=== PATIENT | male | born 1970 | race Caucasian/White ===

== ENCOUNTER 2016-07-30 00:39 | Emergency (ER) | payer BC ==
[2005-08-31 18:02] VITALS: BP 134/68
[~2016-07-30] VITALS: Ht 177.8 cm; Wt 122.3 kg
[~2016-07-30 00:39] MED LIST: ASPIRIN 32325 MG/TAB PO; CRESTOR 10MG10 MG PO; DEXILANT60 MG PO; FOLIC ACID 11 MG/TA1 PO; FORT1000TA PO; JANUVIA 100MG100 MG PO; METHOTREXA2.5 MG/TAB PO; PRIL40 PO; VICTOZA6 MG/ML SC
[2016-07-30] MEDS ORDERED: LIPITOR20 MG PO (00:55)
[2016-07-30] MEDS ORDERED: EMBREL (00:56)
[2016-07-30] MEDS ORDERED: FARXIGA10 PO (01:00)
[2016-07-30 01:12] LABS: ADJUSTED CALCIUM 11.1 mg/dL (8.4-10.2); ALANINE AMINOTRANSFERASE 39 U/L (21-72); ALBUMIN 4.7 gm/dL (3.5-5.0); ALKALINE PHOSPHATASE 135 U/L (50-136); ANION GAP 12 mmol/L (7-16); BILIRUBIN,TOTAL 0.9 mg/dL (0.0-1.0); BLOOD UREA NITROGEN 18 mg/dL (9-20); CALCIUM 11.7 mg/dL (8.4-10.2); CARBON DIOXIDE 30 mmol/L (22-30); CHLORIDE 100 mmol/L (98-107); CREATININE, serum 0.95 mg/dL (0.66-1.25); GLUCOSE 137 mg/dL (74-106); SODIUM 142 mmol/L (137-145); TOTAL PROTEIN 8.7 gm/dL (6.4-8.2); TROPONIN-I < 0.012 ng/mL (0.000-0.034)
[2016-07-30 01:13] LABS: BASO # 0.1 (0.0-0.2); BASO % 0.6 % (0.0-2.0); EOS # 0.3 (0.0-0.7); EOS % 2.5 % (0-4.0); GRAN # 6.7 (1.4-6.5); GRAN % 64.3 % (42.2-75.2); HEMATOCRIT 49.7 % (42.0-52.0); HEMOGLOBIN 16.3 g/dl (13.5-18.0); LYMPH % 19.3 % (20.0-51.0); MEAN CELL VOLUME 84 fl (80.0-100.0); MEAN CORPUSCULAR HEMOGLOBIN 28 pg (27.0-31.0); MEAN CORPUSCULAR HGB CONC 33 g/dl (33.0-37.0); MEAN PLATELET VOLUME 10.3 fl (7.4-10.4); MONO # 1.3 (0.1-0.6); MONO % 12.2 % (1.7-9.3); PLATELET COUNT 228 K/mm3 (130-400); REDCELL DISTRIBUTION WIDTH-CV 13.4 % (11.5-14.5); WHITE BLOOD COUNT 10.5 K/mm3 (4.8-10.8)
[2016-07-30 01:18] LABS: INR 1.1 (0.8-3.0); PROTHROMBIN TIME 12.1 SECONDS (9.7-12.8)
[2016-07-30 01:20] LABS: PARTIAL THROMBOPLASTIN TIME 33.7 SECONDS (26.0-37.0)
[2016-07-30 01:28] LABS: C-REACTIVE PROTEIN 3.8 mg/dL (0.0-0.9)
[2016-07-30] MEDS ORDERED: ZITHROMAX Z PA250 MG PO (02:58)
[2016-07-30] MEDS ORDERED: NORCO 325 MG-51 TAB PO (02:58)
[2016-07-30 03:25] VITALS: BP 128/74; PULSE 73; TEMP 97.8
[2016-07-30] MEDS ORDERED: ENBREL50 MG/ML SC (13:10)
[2016-08-22] MEDS ORDERED: VITAMIN D32000 I1 PO (07:59)
[2016-08-22] MEDS ORDERED: NORCO 325 MG-7.1 TAB PO (08:01)
[2016-08-22] MEDS ORDERED: NEURONTIN400 MG/CAP PO (08:01)
[2017-03-14] MEDS ORDERED: CLEOCIN HCL300 MG PO (15:13)
== END 2016-07-30 03:27 | disposition home or self-care (01) ==
LOC: COL.ER 00:39
PROVIDERS: Family Medicine
DX: R07.89 Other chest pain (principal); R91.8 Other nonspecific abnormal finding of lung field; R00.0 Tachycardia, unspecified; E11.9 Type 2 diabetes mellitus without complications; Z79.84 Long term (current) use of oral hypoglycemic drugs
CPT/HCPCS: J0696; Q9967

== ENCOUNTER 2016-08-01 08:17 | Outpatient (CLI) | payer BC ==
[2005-08-31 18:02] VITALS: BP 134/68
[2016-08-01] VITALS (12 sets, daily range): BP systolic 131–161; BP diastolic 71–111; PULSE 85–103
[~2016-08-01] VITALS: Ht 177.8 cm; Wt 122.3 kg
[~2016-08-01 08:17] MED LIST changes: +EMBREL; +ENBREL50 MG/ML SC; +FARXIGA10 PO; +LIPITOR20 MG PO; +NORCO 325 MG-51 TAB PO; +ZITHROMAX Z PA250 MG PO
[2016-08-01] MEDS ORDERED: ULTRAM 50MG TAB50 MG PO (09:45)
[2016-08-22] MEDS ORDERED: VITAMIN D32000 I1 PO (07:59)
[2016-08-22] MEDS ORDERED: NORCO 325 MG-7.1 TAB PO (08:01)
[2016-08-22] MEDS ORDERED: NEURONTIN400 MG/CAP PO (08:01)
[2017-03-14] MEDS ORDERED: CLEOCIN HCL300 MG PO (15:13)
== END 2016-08-01 14:05 | disposition home or self-care (01) ==
LOC: COL.RAD 08:17
DX: C34.12 Malignant neoplasm of upper lobe, left bronchus or lung (principal)
CPT/HCPCS: 3748

== ENCOUNTER → 2016-08-15 | Outpatient (CLI) | payer BC ==
[~2016-08-15] MED LIST changes: +ATIVAN 0.50.5 MG/TAB PO; +CLEOCIN HCL300 MG PO; +GLUCOPHAGE1000 MG PO; +GRALISE300 MG PO; +MAGIC MOUTH PO; +MS CONTIN 115 MG/TAB PO; +NEURONTIN400 MG/CAP PO; +NORCO 325 MG-7.1 TAB PO; +PHENERGAN 25 TA25 MG PO; +REGLAN 10MG10 MG/TAB PO; +ULTRAM 50MG TAB50 MG PO; +VITAMIN D32000 I1 PO; +VOTRIENT200 MG PO; +ZOFRAN8 MG PO
== END ==
LOC: COL.RAD 12:35
DX: N28.89 Other specified disorders of kidney and ureter (principal); K80.20 Calculus of gallbladder without cholecystitis without obstruction
CPT/HCPCS: Q9967

== ENCOUNTER 2016-10-03 06:51 | Outpatient (CLI) | payer BC ==
[2005-08-31 18:02] VITALS: BP 134/68
[~2016-10-03] VITALS: Ht 177.8 cm; Wt 110.3 kg
[2016-10-03] VITALS (16 sets, daily range): BP systolic 112–127; BP diastolic 60–83; PULSE 103–113
[~2016-10-03 06:51] MED LIST changes: -ATIVAN 0.50.5 MG/TAB PO; -CLEOCIN HCL300 MG PO; -GLUCOPHAGE1000 MG PO; -GRALISE300 MG PO; -MAGIC MOUTH PO; -MS CONTIN 115 MG/TAB PO; -PHENERGAN 25 TA25 MG PO; -REGLAN 10MG10 MG/TAB PO; -VOTRIENT200 MG PO; -ZOFRAN8 MG PO
[2016-10-03] MEDS ORDERED: GRALISE300 MG PO (07:03)
[2016-10-03] MEDS ORDERED: NORCO 325 MG-7.1 TAB PO (07:05)
[2016-10-03] MEDS ORDERED: ULTRAM 50MG TAB50 MG PO (07:05)
[2017-03-14] MEDS ORDERED: CLEOCIN HCL300 MG PO (15:13)
== END 2016-10-03 12:51 | disposition home or self-care (01) ==
LOC: COL.RAD 06:51
DX: D14.31 Benign neoplasm of right bronchus and lung (principal); J95.811 Postprocedural pneumothorax; Y83.8 Other surgical procedures as the cause of abnormal reaction of the patient, or of later complication, without mention of misadventure at the time of the procedure; C34.12 Malignant neoplasm of upper lobe, left bronchus or lung; C64.2 Malignant neoplasm of left kidney, except renal pelvis; I10 Essential (primary) hypertension
CPT/HCPCS: J2250; J3010

== ENCOUNTER 2016-11-01 23:05 | Emergency (ER) | payer BC ==
[2005-08-31 18:02] VITALS: BP 134/68
[~2016-11-01] VITALS: Ht 177.8 cm; Wt 108.2 kg
[~2016-11-01 23:05] MED LIST changes: +GRALISE300 MG PO
[2016-11-01 23:08] VITALS: TEMP 98.9
[2016-11-01 23:38] LABS: HEMATOCRIT 37.5 % (42.0-52.0); HEMOGLOBIN 12.2 g/dl (13.5-18.0); MEAN CELL VOLUME 82 fl (80.0-100.0); MEAN CORPUSCULAR HEMOGLOBIN 27 pg (27.0-31.0); MEAN CORPUSCULAR HGB CONC 33 g/dl (33.0-37.0); MEAN PLATELET VOLUME 9.9 fl (7.4-10.4); PLATELET COUNT 166 K/mm3 (130-400); REDCELL DISTRIBUTION WIDTH-CV 15.3 % (11.5-14.5); WHITE BLOOD COUNT 8.9 K/mm3 (4.8-10.8)
[2016-11-01 23:46] LABS: ADD PATHOLOGY DIFF REVIEW NO
[2016-11-01 23:48] LABS: ADJUSTED CALCIUM 10.4 mg/dL (8.4-10.2); ALANINE AMINOTRANSFERASE 12 U/L (21-72); ALBUMIN 4.4 gm/dL (3.5-5.0); ALKALINE PHOSPHATASE 186 U/L (50-136); ANION GAP 16 mmol/L (7-16); BILIRUBIN,TOTAL 0.6 mg/dL (0.0-1.0); BLOOD UREA NITROGEN 20 mg/dL (9-20); CALCIUM 10.7 mg/dL (8.4-10.2); CARBON DIOXIDE 22 mmol/L (22-30); CHLORIDE 96 mmol/L (98-107); CREATININE, serum 1.16 mg/dL (0.66-1.25); SODIUM 134 mmol/L (137-145); TOTAL PROTEIN 7.7 gm/dL (6.4-8.2)
[2016-11-01 23:49] LABS: VENOUS BLOOD GAS BE -0.6 (-4-4)
[2016-11-01 23:49] LABS: BAND 2 % (0-10); GLUCOSE 564 mg/dL (74-106); METAMYELOCYTE 1 % (0-0); NEUTROPHILS 95 % (42.0-75.2); PLATELET ESTIMATE NORMAL (NORMAL); TOTAL CELLS COUNTED 100
[2016-11-01 23:50] LABS: VENOUS BLOOD GAS SITE VENIPUNCTURE
[2016-11-01] MEDS ORDERED: GLUCOPHAGE1000 MG PO (23:51)
[2016-11-01] MEDS ORDERED: ATIVAN 0.50.5 MG/TAB PO (23:52)
[2016-11-02] LABS: PH 6 (5-8); SQUAMOUS EPITHELIAL None Seen /hpf; URINE APPEARANCE Clear; URINE BACTERIA None Seen /hpf; URINE BILIRUBIN Negative (NEGATIVE); URINE BLOOD 1+ (NEGATIVE); URINE COLOR Straw; URINE GLUCOSE 3+ (NEGATIVE); URINE KETONE Negative (NEGATIVE); URINE RBC None Seen /hpf; URINE UROBILINOGEN Negative (NEGATIVE); URINE WBC 0-2 /hpf
[2016-11-02 04:20] VITALS: BP 130/75; PULSE 98
[2017-03-14] MEDS ORDERED: CLEOCIN HCL300 MG PO (15:13)
== END 2016-11-02 03:15 | disposition home or self-care (01) ==
LOC: COL.ER 23:05
PROVIDERS: Emergency Medicine
DX: E11.65 Type 2 diabetes mellitus with hyperglycemia (principal); R07.89 Other chest pain; R05 Cough; T36.1X5A Adverse effect of cephalosporins and other beta-lactam antibiotics, initial encounter; Y92.538 Other ambulatory health services establishments as the place of occurrence of the external cause; Z53.21 Procedure and treatment not carried out due to patient leaving prior to being seen by health care provider; C34.12 Malignant neoplasm of upper lobe, left bronchus or lung; Z85.528 Personal history of other malignant neoplasm of kidney; Z90.5 Acquired absence of kidney; Z92.3 Personal history of irradiation; R00.0 Tachycardia, unspecified; Z79.84 Long term (current) use of oral hypoglycemic drugs; Z79.899 Other long term (current) drug therapy
CPT/HCPCS: 99222; J0171; J0692; J1200; J1815; J7030

== ENCOUNTER 2016-12-18 07:42 | Observation (INO) | payer BC ==
[2016-12-18] VITALS (10 sets, daily range): BP systolic 110–138; BP diastolic 55–89; PULSE 81–114; TEMP 97.7–98.2
[~2016-12-18] VITALS: Ht 177.8 cm; Wt 98.5 kg
[~2016-12-18 07:42] MED LIST changes: +ATIVAN 0.50.5 MG/TAB PO; +GLUCOPHAGE1000 MG PO
[2016-12-18 08:54] LABS: MEAN CELL VOLUME 86 fl (80.0-100.0); MEAN CORPUSCULAR HGB CONC 34 g/dl (33.0-37.0); MEAN PLATELET VOLUME 9.8 fl (7.4-10.4); PLATELET COUNT 124 K/mm3 (130-400); REDCELL DISTRIBUTION WIDTH-CV 19.1 % (11.5-14.5); WHITE BLOOD COUNT 5.1 K/mm3 (4.8-10.8)
[2016-12-18 09:00] LABS: ADD PATHOLOGY DIFF REVIEW NO; HEMATOCRIT 25.8 % (42.0-52.0); HEMOGLOBIN 8.8 g/dl (13.5-18.0); MEAN CORPUSCULAR HEMOGLOBIN 29 pg (27.0-31.0)
[2016-12-18 09:02] LABS: ADJUSTED CALCIUM 10.3 mg/dL (8.4-10.2); ALBUMIN 3.9 gm/dL (3.5-5.0); C-REACTIVE PROTEIN 6.2 mg/dL (0.0-0.9); CALCIUM 10.2 mg/dL (8.4-10.2); CREATININE, serum 0.83 mg/dL (0.66-1.25); POTASSIUM 3.8 mmol/L (3.4-5.0)
[2016-12-18 09:23] LABS: BAND 3 % (0-10); EOSINOPHIL 3 % (0-4); NEUTROPHILS 78 % (42.0-75.2); TOTAL CELLS COUNTED 100
[2016-12-18 09:25] LABS: ANISOCYTOSIS 2+; HYPOCHROMIA 1+; MICROCYTOSIS 1+; PLATELET ESTIMATE NORMAL (NORMAL)
[2016-12-18 09:43] LABS: PH 8 (5-8); SQUAMOUS EPITHELIAL None Seen /hpf; URINE APPEARANCE Clear; URINE BACTERIA None Seen /hpf; URINE BILIRUBIN Negative (NEGATIVE); URINE BLOOD Negative (NEGATIVE); URINE COLOR Yellow; URINE GLUCOSE Negative (NEGATIVE); URINE KETONE Trace (NEGATIVE); URINE RBC 0-2 /hpf; URINE UROBILINOGEN Negative (NEGATIVE); URINE WBC 0-2 /hpf
[2016-12-18] MEDS ORDERED: GLUCOPHAGE1000 MG PO (12:51)
[2016-12-18] MEDS ORDERED: MAGIC MOUTH PO (12:56)
[2016-12-19 01:24] VITALS: BP 118/61; PULSE 81; TEMP 98.1
[2016-12-19 05:46] VITALS: BP 137/84; PULSE 97; TEMP 97.4
[2017-03-14] MEDS ORDERED: CLEOCIN HCL300 MG PO (15:13)
== END 2016-12-19 09:51 | disposition home or self-care (01) ==
LOC: COL.ER 07:42 → SURG 10:56
PROVIDERS: Emergency Medicine
DX: K80.10 Calculus of gallbladder with chronic cholecystitis without obstruction (principal); E11.9 Type 2 diabetes mellitus without complications; C34.91 Malignant neoplasm of unspecified part of right bronchus or lung; C64.2 Malignant neoplasm of left kidney, except renal pelvis; I10 Essential (primary) hypertension; D49.7 Neoplasm of unspecified behavior of endocrine glands and other parts of nervous system; D64.9 Anemia, unspecified; K21.9 Gastro-esophageal reflux disease without esophagitis; M19.90 Unspecified osteoarthritis, unspecified site; R20.9 Unspecified disturbances of skin sensation; Z92.21 Personal history of antineoplastic chemotherapy; Z92.3 Personal history of irradiation; Z90.5 Acquired absence of kidney
CPT/HCPCS: J1100; J1170; J2270; J2405; J2704; J2765; J3010; J7030; J7120; Q9967

== ENCOUNTER 2016-12-31 06:23 | Outpatient (CLI) | payer BC ==
[2005-08-31 18:02] VITALS: BP 134/68
[~2016-12-31] VITALS: Ht 177.8 cm; Wt 99.2 kg
[2016-12-31] VITALS (12 sets, daily range): BP systolic 98–121; BP diastolic 43–81; PULSE 98–112; TEMP 99–99.9
[~2016-12-31 06:23] MED LIST changes: +MAGIC MOUTH PO
[2017-03-14] MEDS ORDERED: CLEOCIN HCL300 MG PO (15:13)
== END 2016-12-31 11:18 | disposition home or self-care (01) ==
LOC: COL.RAD 06:23
DX: C78.01 Secondary malignant neoplasm of right lung (principal)

== ENCOUNTER 2017-01-02 15:08 | Emergency (ER) | payer BC ==
[2005-08-31 18:02] VITALS: BP 134/68
[~2017-01-02] VITALS: Ht 177.8 cm; Wt 99.5 kg
[2017-01-02 15:10] VITALS: TEMP 99
[2017-01-02] MEDS ORDERED: MS CONTIN 115 MG/TAB PO (15:35)
[2017-01-02 17:12] VITALS: BP 110/68; PULSE 99
[2017-03-14] MEDS ORDERED: CLEOCIN HCL300 MG PO (15:13)
== END 2017-01-02 17:25 | disposition home or self-care (01) ==
LOC: COL.ER 15:08
DX: J95.811 Postprocedural pneumothorax (principal); I10 Essential (primary) hypertension; C34.12 Malignant neoplasm of upper lobe, left bronchus or lung; C78.01 Secondary malignant neoplasm of right lung; C79.71 Secondary malignant neoplasm of right adrenal gland; Z85.528 Personal history of other malignant neoplasm of kidney; Z92.3 Personal history of irradiation; Z90.5 Acquired absence of kidney

== ENCOUNTER → 2017-01-04 | Outpatient (CLI) | payer BC ==
[~2017-01-04] MED LIST changes: +CLEOCIN HCL300 MG PO; +MS CONTIN 115 MG/TAB PO; +PHENERGAN 25 TA25 MG PO; +REGLAN 10MG10 MG/TAB PO; +VOTRIENT200 MG PO; +ZOFRAN8 MG PO
== END ==
LOC: COL.RAD 11:27
DX: R91.8 Other nonspecific abnormal finding of lung field (principal); Z97.8 Presence of other specified devices

== ENCOUNTER → 2017-01-05 | Outpatient (CLI) | payer BC | LOC: COL.RAD 10:48 | DX: R91.8 Other nonspecific abnormal finding of lung field (principal); J95.811 Postprocedural pneumothorax; Z95.828 Presence of other vascular implants and grafts ==

== ENCOUNTER 2017-01-24 19:06 | Emergency (ER) | payer BC ==
[2005-08-31 18:02] VITALS: BP 134/68
[~2017-01-24] VITALS: Ht 177.8 cm; Wt 101.4 kg
[~2017-01-24 19:06] MED LIST changes: -CLEOCIN HCL300 MG PO; -PHENERGAN 25 TA25 MG PO; -REGLAN 10MG10 MG/TAB PO; -VOTRIENT200 MG PO; -ZOFRAN8 MG PO
[2017-01-24 19:09] VITALS: BP 129/71; TEMP 98.3
[2017-01-24 19:53] LABS: BASO # 0.1 (0.0-0.2); BASO % 0.8 % (0.0-2.0); EOS # 0.2 (0.0-0.7); EOS % 2.8 % (0-4.0); GRAN # 4.8 (1.4-6.5); GRAN % 78.6 % (42.2-75.2); LYMPH # 0.4 (1.2-3.4); MEAN CELL VOLUME 88 fl (80.0-100.0); MEAN CORPUSCULAR HGB CONC 33 g/dl (33.0-37.0); MEAN PLATELET VOLUME 9.7 fl (7.4-10.4); MONO # 0.6 (0.1-0.6); PLATELET COUNT 203 K/mm3 (130-400); REDCELL DISTRIBUTION WIDTH-CV 14.3 % (11.5-14.5); WHITE BLOOD COUNT 6.1 K/mm3 (4.8-10.8)
[2017-01-24 19:54] LABS: HEMOGLOBIN 9.2 g/dl (13.5-18.0); MEAN CORPUSCULAR HEMOGLOBIN 29 pg (27.0-31.0)
[2017-01-24 20:05] LABS: ADJUSTED CALCIUM 10.7 mg/dL (8.4-10.2); BILIRUBIN,TOTAL 0.5 mg/dL (0.0-1.0); CALCIUM 10.7 mg/dL (8.4-10.2); CREATININE, serum 1.13 mg/dL (0.66-1.25); POTASSIUM 4.9 mmol/L (3.4-5.0); TOTAL PROTEIN 7.6 gm/dL (6.4-8.2)
[2017-01-24 20:06] LABS: PH 5 (5-8); SQUAMOUS EPITHELIAL None Seen /hpf; URINE APPEARANCE Clear; URINE BACTERIA None Seen /hpf; URINE BILIRUBIN Negative (NEGATIVE); URINE BLOOD 1+ (NEGATIVE); URINE COLOR Yellow; URINE GLUCOSE Negative (NEGATIVE); URINE KETONE Negative (NEGATIVE); URINE RBC 0-2 /hpf; URINE WBC 0-2 /hpf
[2017-01-24 22:01] VITALS: PULSE 107
[2017-03-14] MEDS ORDERED: CLEOCIN HCL300 MG PO (15:13)
[2017-04-16] MEDS ORDERED: MS CONTIN 115 MG/TAB PO (14:15)
[2017-04-16] MEDS ORDERED: PROVENTIL0.09 MG/A1 IH (14:19)
[2017-04-17] MEDS ORDERED: TYLENOL 325MG325 MG PO (07:09)
[2017-04-22] MEDS ORDERED: CORTEF 10MG TAB10 MG PO (10:49)
== END 2017-01-24 22:01 | disposition home or self-care (01) ==
LOC: COL.ER 19:06
PROVIDERS: Emergency Medicine
DX: R10.11 Right upper quadrant pain (principal); M54.89 Other dorsalgia; E11.9 Type 2 diabetes mellitus without complications; I25.10 Atherosclerotic heart disease of native coronary artery without angina pectoris; Z85.528 Personal history of other malignant neoplasm of kidney; Z90.5 Acquired absence of kidney; L40.50 Arthropathic psoriasis, unspecified; Z92.3 Personal history of irradiation; Z79.899 Other long term (current) drug therapy
CPT/HCPCS: J1885; J2270; J7030; Q9967

== ENCOUNTER 2017-02-11 17:47 | Emergency (ER) | payer BC ==
[2005-08-31 18:02] VITALS: BP 134/68
[~2017-02-11] VITALS: Ht 177.8 cm; Wt 100.0 kg
[2017-02-11 17:49] VITALS: TEMP 99.2
[2017-02-11] MEDS ORDERED: REGLAN 10MG10 MG/TAB PO (17:53)
[2017-02-11] MEDS ORDERED: VOTRIENT200 MG PO (17:53)
[2017-02-11 18:31] LABS: BASO % 0.7 % (0.0-2.0); EOS # 0.4 (0.0-0.7); EOS % 8.8 % (0-4.0); GRAN % 67.1 % (42.2-75.2); LYMPH # 0.5 (1.2-3.4); LYMPH % 11.8 % (20.0-51.0); MEAN CELL VOLUME 91 fl (80.0-100.0); MEAN CORPUSCULAR HGB CONC 32 g/dl (33.0-37.0); MEAN PLATELET VOLUME 10.6 fl (7.4-10.4); MONO # 0.5 (0.1-0.6); MONO % 11.1 % (1.7-9.3); PLATELET COUNT 150 K/mm3 (130-400); RED BLOOD COUNT 3.67 M/mm3 (4.20-5.60); REDCELL DISTRIBUTION WIDTH-CV 15.8 % (11.5-14.5); WHITE BLOOD COUNT 4.4 K/mm3 (4.8-10.8)
[2017-02-11 18:40] LABS: HEMATOCRIT 33.2 % (42.0-52.0); HEMOGLOBIN 10.7 g/dl (13.5-18.0); MEAN CORPUSCULAR HEMOGLOBIN 29 pg (27.0-31.0)
[2017-02-11 18:44] LABS: CALCIUM 10.8 mg/dL (8.4-10.2); CREATININE, serum 1.27 mg/dL (0.66-1.25); MAGNESIUM 2.1 mg/dL (1.6-2.3); POTASSIUM 4.8 mmol/L (3.4-5.0)
[2017-02-11 19:06] VITALS: BP 128/68; PULSE 76
[2017-03-14] MEDS ORDERED: CLEOCIN HCL300 MG PO (15:13)
== END 2017-02-11 19:07 | disposition home or self-care (01) ==
LOC: COL.ER 17:47
PROVIDERS: Emergency Medicine
DX: E83.52 Hypercalcemia (principal); D64.9 Anemia, unspecified; C64.2 Malignant neoplasm of left kidney, except renal pelvis; Z90.5 Acquired absence of kidney

== ENCOUNTER 2017-03-10 11:05 | Emergency (ER) | payer BC ==
[2005-08-31 18:02] VITALS: BP 134/68
[~2017-03-10] VITALS: Ht 177.8 cm; Wt 100.5 kg
[~2017-03-10 11:05] MED LIST changes: +REGLAN 10MG10 MG/TAB PO; +VOTRIENT200 MG PO
[2017-03-10 11:10] VITALS: BP 116/87; PULSE 107; TEMP 98.2
[2017-03-10 12:19] LABS: MEAN CELL VOLUME 94 fl (80.0-100.0); MEAN CORPUSCULAR HGB CONC 32 g/dl (33.0-37.0); MEAN PLATELET VOLUME 10.5 fl (7.4-10.4); PLATELET COUNT 140 K/mm3 (130-400); RED BLOOD COUNT 3.73 M/mm3 (4.20-5.60); REDCELL DISTRIBUTION WIDTH-CV 18.4 % (11.5-14.5); WHITE BLOOD COUNT 4.9 K/mm3 (4.8-10.8)
[2017-03-10 12:22] LABS: ADD PATHOLOGY DIFF REVIEW NO; HEMATOCRIT 34.9 % (42.0-52.0); HEMOGLOBIN 11.3 g/dl (13.5-18.0); MEAN CORPUSCULAR HEMOGLOBIN 30 pg (27.0-31.0)
[2017-03-10 12:28] LABS: ADJUSTED CALCIUM 9.2 mg/dL (8.4-10.2); BILIRUBIN,TOTAL 0.7 mg/dL (0.0-1.0); CALCIUM 9.2 mg/dL (8.4-10.2); CREATININE, serum 1.34 mg/dL (0.66-1.25); MAGNESIUM 1.9 mg/dL (1.6-2.3)
[2017-03-10 12:49] LABS: C-REACTIVE PROTEIN 12.7 mg/dL (0.0-0.9)
[2017-03-10] MEDS ORDERED: ZOFRAN8 MG PO (13:02)
[2017-03-10 13:04] LABS: ANISOCYTOSIS 2+; BAND 17 % (0-10); HYPOCHROMIA 1+; METAMYELOCYTE 1 % (0-0); MYELOCYTE 4 % (0-0); NEUTROPHILS 71 % (42.0-75.2); PLATELET ESTIMATE NORMAL (NORMAL); TOTAL CELLS COUNTED 100
[2017-03-10 13:05] LABS: OVALOCYTES 1+
[2017-03-10] MEDS ORDERED: PHENERGAN 25 TA25 MG PO (15:00)
[2017-03-14] MEDS ORDERED: CLEOCIN HCL300 MG PO (15:13)
== END 2017-03-10 15:12 | disposition home or self-care (01) ==
LOC: COL.ER 11:05
PROVIDERS: Emergency Medicine
DX: C64.2 Malignant neoplasm of left kidney, except renal pelvis (principal); R11.2 Nausea with vomiting, unspecified; R10.84 Generalized abdominal pain; E11.9 Type 2 diabetes mellitus without complications; Z79.84 Long term (current) use of oral hypoglycemic drugs; Z90.49 Acquired absence of other specified parts of digestive tract; Z90.5 Acquired absence of kidney
CPT/HCPCS: J1170; J1644; J2405; J2550; J7030

== ENCOUNTER 2017-04-29 06:51 | Day surgery (SDC) | payer BC ==
[2005-08-31 18:02] VITALS: BP 134/68
[~2017-04-29] VITALS: Ht 177.8 cm; Wt 99.6 kg
[~2017-04-29 06:51] MED LIST changes: +CLEOCIN HCL300 MG PO; +CORTEF 10MG TAB10 MG PO; +PHENERGAN 25 TA25 MG PO; +PROVENTIL0.09 MG/A1 IH; +TYLENOL 325MG325 MG PO; +ZOFRAN8 MG PO
[2017-04-29 08:45] VITALS: BP 101/52; PULSE 110; TEMP 98.2
[2017-04-29] MEDS ORDERED: REMERON 15M15 MG/TA1 PO (09:01)
[2017-04-29] MEDS ORDERED: GLUCOPHAGE500 MG/TAB PO (09:02)
[2017-04-29 09:27] LABS: HEMATOCRIT 27.8 % (42.0-52.0); MEAN CELL VOLUME 93 fl (80.0-100.0); MEAN CORPUSCULAR HEMOGLOBIN 30 pg (27.0-31.0); MEAN CORPUSCULAR HGB CONC 32 g/dl (33.0-37.0); MEAN PLATELET VOLUME 10.3 fl (7.4-10.4); PLATELET COUNT 91 K/mm3 (130-400); RED BLOOD COUNT 2.99 M/mm3 (4.20-5.60); WHITE BLOOD COUNT 11.3 K/mm3 (4.8-10.8)
[2017-04-29 09:32] LABS: INR 1.6 (0.8-3.0); PROTHROMBIN TIME 17.7 SECONDS (9.7-12.8)
[2017-04-29 10:30] VITALS: BP 115/49; PULSE 116; TEMP 97.5
[2017-04-29] MEDS ORDERED: AMOXICILLIN/CLA1 TA1 PO (10:33)
[2017-04-29 10:45] VITALS: BP 97/84; PULSE 117
[2017-04-29 11:00] VITALS: BP 111/45; PULSE 116
[2017-04-29 12:39] VITALS: BP 90/63; PULSE 116
== END 2017-04-29 11:30 | disposition home or self-care (01) ==
LOC: SDCO 06:51
PROVIDERS: Internal Medicine Pulmonary Disease
DX: J90 Pleural effusion, not elsewhere classified (principal); R06.00 Dyspnea, unspecified; G47.00 Insomnia, unspecified; C64.2 Malignant neoplasm of left kidney, except renal pelvis; Z90.5 Acquired absence of kidney; E87.1 Hypo-osmolality and hyponatremia; E86.0 Dehydration; Z92.21 Personal history of antineoplastic chemotherapy; Z85.09 Personal history of malignant neoplasm of other digestive organs; K21.9 Gastro-esophageal reflux disease without esophagitis; M19.90 Unspecified osteoarthritis, unspecified site; E11.9 Type 2 diabetes mellitus without complications; R20.2 Paresthesia of skin; N17.9 Acute kidney failure, unspecified; G47.33 Obstructive sleep apnea (adult) (pediatric); I10 Essential (primary) hypertension; R44.3 Hallucinations, unspecified; E78.5 Hyperlipidemia, unspecified; D64.9 Anemia, unspecified; L40.9 Psoriasis, unspecified; S09.90XA Unspecified injury of head, initial encounter; Y92.002 Bathroom of unspecified non-institutional (private) residence as the place of occurrence of the external cause; Z90.49 Acquired absence of other specified parts of digestive tract; Z91.81 History of falling
CPT/HCPCS: A7048; C1729; J1644; J2270; J2704; J2765; J3010; J7030

== ENCOUNTER 2017-05-02 07:25 | Day surgery (SDC) | payer BC ==
[2005-08-31 18:02] VITALS: BP 134/68
[~2017-05-02] VITALS: Ht 177.8 cm; Wt 99.5 kg
[2017-05-02] VITALS (234 sets, daily range): BP systolic 70–102; BP diastolic 40–46; PULSE 103–115; TEMP 97.9–98.2; O2SAT 82–100
[~2017-05-02 07:25] MED LIST changes: +AMOXICILLIN/CLA1 TA1 PO; +GLUCOPHAGE500 MG/TAB PO; +REMERON 15M15 MG/TA1 PO
[2017-05-02] MEDS ORDERED: AMOXICILLIN 8751 TAB PO (08:20)
[2017-05-02 08:33] LABS: INR 1.5 (0.8-3.0); PROTHROMBIN TIME 17.4 SECONDS (9.7-12.8)
[2017-05-02] MEDS ORDERED: LASIX 40MG TABL40 MG PO (15:16)
[2017-05-02] MEDS ORDERED: OPDIVO100 MG/10 IV (15:17)
[2017-05-02] MEDS ORDERED: ZOMETA4 MG/100 M IV (15:18)
[2017-05-03] VITALS (848 sets, daily range): O2SAT 76–100
[2017-05-04] VITALS (1057 sets, daily range): O2SAT 51–100
[2017-05-05] VITALS (578 sets, daily range): O2SAT 79–100
== END 2017-05-02 12:59 | disposition home or self-care (01) ==
LOC: SDCO 07:25
PROVIDERS: Internal Medicine Pulmonary Disease
DX: J90 Pleural effusion, not elsewhere classified (principal); Z90.49 Acquired absence of other specified parts of digestive tract; Z90.5 Acquired absence of kidney; C34.90 Malignant neoplasm of unspecified part of unspecified bronchus or lung; K21.9 Gastro-esophageal reflux disease without esophagitis; G47.33 Obstructive sleep apnea (adult) (pediatric); M19.90 Unspecified osteoarthritis, unspecified site; E11.9 Type 2 diabetes mellitus without complications; E87.1 Hypo-osmolality and hyponatremia; D64.9 Anemia, unspecified; Z85.528 Personal history of other malignant neoplasm of kidney; Z79.84 Long term (current) use of oral hypoglycemic drugs; Z83.3 Family history of diabetes mellitus
CPT/HCPCS: J2270; J2704; J3010; J7030

== ENCOUNTER 2017-05-02 14:30 | Inpatient (IN) | payer BC ==
[~2017-05-02] VITALS: Ht 177.8 cm; Wt 107.0 kg
[2017-05-02] VITALS (17 sets, daily range): BP systolic 91–104; BP diastolic 50–93; PULSE 95–101; TEMP 97.2–98.5; O2SAT 80–99
[~2017-05-02 14:30] MED LIST changes: +AMOXICILLIN 8751 TAB PO
[2017-05-02 15:11] LABS: MEAN CELL VOLUME 93 fl (80.0-100.0); MEAN CORPUSCULAR HGB CONC 32 g/dl (33.0-37.0); MEAN PLATELET VOLUME 11.8 fl (7.4-10.4); PLATELET COUNT 74 K/mm3 (130-400); RED BLOOD COUNT 2.67 M/mm3 (4.20-5.60); REDCELL DISTRIBUTION WIDTH-CV 17.4 % (11.5-14.5); WHITE BLOOD COUNT 10.1 K/mm3 (4.8-10.8)
[2017-05-02 15:12] LABS: ADD PATHOLOGY DIFF REVIEW NO; HEMATOCRIT 24.9 % (42.0-52.0); HEMOGLOBIN 7.9 g/dl (13.5-18.0); MEAN CORPUSCULAR HEMOGLOBIN 30 pg (27.0-31.0)
[2017-05-02] MEDS ORDERED: LASIX 40MG TABL40 MG PO (15:16)
[2017-05-02] MEDS ORDERED: OPDIVO100 MG/10 IV (15:17)
[2017-05-02] MEDS ORDERED: ZOMETA4 MG/100 M IV (15:18)
[2017-05-02 15:19] LABS: INR 1.5 (0.8-3.0); PROTHROMBIN TIME 17.1 SECONDS (9.7-12.8)
[2017-05-02 15:22] LABS: ADJUSTED CALCIUM 12.7 mg/dL (8.4-10.2); CALCIUM 11.9 mg/dL (8.4-10.2); CREATININE, serum 1.23 mg/dL (0.66-1.25); POTASSIUM 4.8 mmol/L (3.4-5.0); TOTAL PROTEIN 6.2 gm/dL (6.4-8.2)
[2017-05-02 15:46] LABS: PARTIAL THROMBOPLASTIN TIME 120.3 SECONDS (26.0-37.0)
[2017-05-02 16:07] LABS: BAND 3 % (0-10); EOSINOPHIL 2 % (0-4); METAMYELOCYTE 1 % (0-0); NEUTROPHILS 88 % (42.0-75.2); TOTAL CELLS COUNTED 100
[2017-05-02 16:09] LABS: ANISOCYTOSIS 2+; HYPOCHROMIA 1+; PLATELET ESTIMATE DECREASED (NORMAL); POLYCHROMASIA 1+; TEAR DROP CELLS 1+; TOXIC GRANULATION PRESENT
[2017-05-02 19:39] LABS: PH 5 (5-8); SQUAMOUS EPITHELIAL None Seen /hpf; URINE APPEARANCE Hazy; URINE BACTERIA Rare /hpf; URINE BILIRUBIN Negative (NEGATIVE); URINE BLOOD Negative (NEGATIVE); URINE COLOR Amber; URINE GLUCOSE Negative (NEGATIVE); URINE KETONE Negative (NEGATIVE); URINE UROBILINOGEN >=4.0 mg/dL (NEGATIVE)
[2017-05-02 20:56] LABS: HEMATOCRIT 23.6 % (42.0-52.0); HEMOGLOBIN 7.3 g/dl (13.5-18.0)
[2017-05-03] VITALS (20 sets, daily range): BP systolic 72–106; BP diastolic 44–63; PULSE 88–98; TEMP 97.1–98.3
[2017-05-03 08:27] LABS: MEAN CELL VOLUME 93 fl (80.0-100.0); MEAN CORPUSCULAR HGB CONC 32 g/dl (33.0-37.0); MEAN PLATELET VOLUME 12.1 fl (7.4-10.4); PLATELET COUNT 75 K/mm3 (130-400); RED BLOOD COUNT 3.09 M/mm3 (4.20-5.60); REDCELL DISTRIBUTION WIDTH-CV 17.2 % (11.5-14.5); WHITE BLOOD COUNT 10.1 K/mm3 (4.8-10.8)
[2017-05-03 08:28] LABS: ADD PATHOLOGY DIFF REVIEW NO; HEMATOCRIT 28.7 % (42.0-52.0); HEMOGLOBIN 9.2 g/dl (13.5-18.0); MEAN CORPUSCULAR HEMOGLOBIN 30 pg (27.0-31.0)
[2017-05-03 08:39] LABS: ADJUSTED CALCIUM 12.1 mg/dL (8.4-10.2); ALBUMIN 2.8 gm/dL (3.5-5.0); BILIRUBIN,TOTAL 1.1 mg/dL (0.0-1.0); CALCIUM 11.1 mg/dL (8.4-10.2); CREATININE, serum 1.23 mg/dL (0.66-1.25); MAGNESIUM 1.9 mg/dL (1.6-2.3); POTASSIUM 5.6 mmol/L (3.4-5.0); TOTAL PROTEIN 5.9 gm/dL (6.4-8.2)
[2017-05-03 09:39] LABS: NEUTROPHILS 96 % (42.0-75.2); TOTAL CELLS COUNTED 100
[2017-05-03 09:40] LABS: OVALOCYTES 1+; PLATELET ESTIMATE DECREASED (NORMAL)
[2017-05-03 09:41] LABS: ANISOCYTOSIS 1+
[2017-05-03 09:42] LABS: POIKILOCYTOSIS 1+
[2017-05-03 12:33] LABS: INR 1.6 (0.8-3.0); PROTHROMBIN TIME 17.8 SECONDS (9.7-12.8)
[2017-05-03 14:11] LABS: PARTIAL THROMBOPLASTIN TIME 31.2 SECONDS (26.0-37.0)
[2017-05-04] VITALS: BP 81/50; PULSE 96; TEMP 97.8
[2017-05-04 04:00] VITALS: BP 105/57; PULSE 96; TEMP 97.5
[2017-05-04 05:54] LABS: MEAN CELL VOLUME 92 fl (80.0-100.0); MEAN CORPUSCULAR HGB CONC 33 g/dl (33.0-37.0); MEAN PLATELET VOLUME 12.9 fl (7.4-10.4); PLATELET COUNT 78 K/mm3 (130-400); RED BLOOD COUNT 3.21 M/mm3 (4.20-5.60); REDCELL DISTRIBUTION WIDTH-CV 17.1 % (11.5-14.5); WHITE BLOOD COUNT 12.3 K/mm3 (4.8-10.8)
[2017-05-04 05:56] LABS: HEMATOCRIT 29.4 % (42.0-52.0); HEMOGLOBIN 9.6 g/dl (13.5-18.0); MEAN CORPUSCULAR HEMOGLOBIN 30 pg (27.0-31.0)
[2017-05-04 08:00] VITALS: BP 101/56; PULSE 95; TEMP 97.5
[2017-05-04 08:07] LABS: ADJUSTED CALCIUM 11.6 mg/dL (8.4-10.2); ALBUMIN 3.1 gm/dL (3.5-5.0); BILIRUBIN,TOTAL 1.2 mg/dL (0.0-1.0); CALCIUM 10.9 mg/dL (8.4-10.2); CREATININE, serum 1.53 mg/dL (0.66-1.25); POTASSIUM 5.3 mmol/L (3.4-5.0); TOTAL PROTEIN 6.2 gm/dL (6.4-8.2)
[2017-05-04 08:13] LABS: PARTIAL THROMBOPLASTIN TIME 29.6 SECONDS (26.0-37.0)
[2017-05-04 12:00] VITALS: BP 109/63; PULSE 102; TEMP 97.4
[2017-05-04 16:03] VITALS: BP 92/56; PULSE 96; TEMP 96.8
[2017-05-04 20:00] VITALS: BP 97/62; PULSE 99; TEMP 98.4
[2017-05-05] VITALS (7 sets, daily range): BP systolic 95–114; BP diastolic 49–63; PULSE 99–104; TEMP 96.5–97.6
[2017-05-05 12:01] LABS: MEAN CELL VOLUME 93 fl (80.0-100.0); MEAN CORPUSCULAR HGB CONC 33 g/dl (33.0-37.0); MEAN PLATELET VOLUME 12.3 fl (7.4-10.4); PLATELET COUNT 94 K/mm3 (130-400); RED BLOOD COUNT 3.29 M/mm3 (4.20-5.60); REDCELL DISTRIBUTION WIDTH-CV 17.2 % (11.5-14.5); WHITE BLOOD COUNT 11.3 K/mm3 (4.8-10.8)
[2017-05-05 12:02] LABS: ADD PATHOLOGY DIFF REVIEW NO; HEMATOCRIT 30.5 % (42.0-52.0); HEMOGLOBIN 9.9 g/dl (13.5-18.0); MEAN CORPUSCULAR HEMOGLOBIN 30 pg (27.0-31.0)
[2017-05-05 12:06] LABS: CALCIUM 10.5 mg/dL (8.4-10.2); CREATININE, serum 1.49 mg/dL (0.66-1.25); POTASSIUM 4.5 mmol/L (3.4-5.0)
[2017-05-05 12:44] LABS: ANISOCYTOSIS 1+; BAND 5 % (0-10); NEUTROPHILS 90 % (42.0-75.2); PLATELET ESTIMATE DECREASED (NORMAL); TOTAL CELLS COUNTED 100
[2017-05-05 12:45] LABS: OVALOCYTES 1+
[2017-05-06 01:30] VITALS: BP 108/55; PULSE 109; TEMP 97.8
[2017-05-06 05:24] VITALS: BP 121/55; PULSE 101; TEMP 97.6
[2017-05-06 07:40] LABS: MEAN CELL VOLUME 94 fl (80.0-100.0); MEAN CORPUSCULAR HGB CONC 31 g/dl (33.0-37.0); MEAN PLATELET VOLUME 12.3 fl (7.4-10.4); PLATELET COUNT 97 K/mm3 (130-400); RED BLOOD COUNT 3.24 M/mm3 (4.20-5.60); REDCELL DISTRIBUTION WIDTH-CV 17.1 % (11.5-14.5)
[2017-05-06 07:45] LABS: ADD PATHOLOGY DIFF REVIEW NO; HEMATOCRIT 30.3 % (42.0-52.0); HEMOGLOBIN 9.5 g/dl (13.5-18.0); MEAN CORPUSCULAR HEMOGLOBIN 29 pg (27.0-31.0)
[2017-05-06 07:48] VITALS: BP 110/58; PULSE 105; TEMP 97.5
[2017-05-06 07:54] LABS: CALCIUM 10.3 mg/dL (8.4-10.2); CREATININE, serum 1.5 mg/dL (0.66-1.25); POTASSIUM 3.5 mmol/L (3.4-5.0)
[2017-05-06 08:39] LABS: BAND 5 % (0-10); EOSINOPHIL 1 % (0-4); METAMYELOCYTE 1 % (0-0); NEUTROPHILS 88 % (42.0-75.2); PLATELET ESTIMATE DECREASED (NORMAL); TOTAL CELLS COUNTED 100
[2017-05-06 11:21] VITALS: BP 107/56; PULSE 104; TEMP 97.7
[2017-05-06] MEDS ORDERED: SODIUM BICARBO650 MG PO (12:55)
[2017-05-06] MEDS ORDERED: THERMOTABS 2871 TA1 PO (12:55)
[2017-05-06] MEDS ORDERED: PROAMATINE2.5 MG PO (12:56)
== END 2017-05-06 15:11 | disposition home or self-care (01) | DRG 683 ==
LOC: COL.ER 14:30 → ICU 17:09 → MEDICAL 05-05 17:01
PROVIDERS: Emergency Medicine; Internal Medicine; Internal Medicine Medical Oncology; Internal Medicine Pulmonary Disease; Nurse Practitioner
DX: N17.9 Acute kidney failure, unspecified (principal); E87.2 Acidosis; C64.2 Malignant neoplasm of left kidney, except renal pelvis; C78.7 Secondary malignant neoplasm of liver and intrahepatic bile duct; C79.71 Secondary malignant neoplasm of right adrenal gland; C79.72 Secondary malignant neoplasm of left adrenal gland; C78.2 Secondary malignant neoplasm of pleura; I50.32 Chronic diastolic (congestive) heart failure; E27.40 Unspecified adrenocortical insufficiency; C78.01 Secondary malignant neoplasm of right lung; C78.02 Secondary malignant neoplasm of left lung; C79.89 Secondary malignant neoplasm of other specified sites; C17.9 Malignant neoplasm of small intestine, unspecified; E44.0 Moderate protein-calorie malnutrition; E87.1 Hypo-osmolality and hyponatremia; E11.9 Type 2 diabetes mellitus without complications; Z85.118 Personal history of other malignant neoplasm of bronchus and lung; E83.52 Hypercalcemia; D69.6 Thrombocytopenia, unspecified; N18.9 Chronic kidney disease, unspecified; D64.81 Anemia due to antineoplastic chemotherapy
CPT/HCPCS: 99223-AI; 99232-AI; 99233-AI; 99239; C9113; J1170; J1720; J1815; J1940; J2270; J2405; J2430; J2704; J2720; J3010; J7030; P9016; P9047; Q9967

== ENCOUNTER 2017-05-14 10:13 | Day surgery (SDC) | payer BC ==
[2005-08-31 18:02] VITALS: BP 134/68
[~2017-05-14] VITALS: Ht 177.8 cm; Wt 108.2 kg
[~2017-05-14 10:13] MED LIST changes: +LASIX 40MG TABL40 MG PO; +OPDIVO100 MG/10 IV; +PROAMATINE2.5 MG PO; +SODIUM BICARBO650 MG PO; +THERMOTABS 2871 TA1 PO; +ZOMETA4 MG/100 M IV
[2017-05-14 11:21] VITALS: BP 83/39; PULSE 96; TEMP 97.3
[2017-05-14] MEDS ORDERED: THERMOTABS 2871 TA1 PO (11:34)
[2017-05-14] MEDS ORDERED: PROAMATINE2.5 MG PO (11:34)
[2017-05-14] MEDS ORDERED: SODIUM BICARBO650 MG PO (11:35)
[2017-05-14] MEDS ORDERED: CORTEF 10MG TAB10 MG PO (11:37)
[2017-05-14] MEDS ORDERED: NORCO 325 MG-51 TAB PO (11:39)
[2017-05-14] MEDS ORDERED: HALDOL .5M0.5 MG/TAB PO (11:47)
[2017-05-14 13:35] VITALS: BP 72/39; PULSE 91; TEMP 97.4
[2017-05-14 13:50] VITALS: BP 80/52; PULSE 90
[2017-05-14 14:05] VITALS: BP 84/38; PULSE 94
[2017-05-14 14:20] VITALS: BP 87/65; PULSE 92
[2017-05-14] MEDS ORDERED: AMOXICILLIN/CLA1 TA1 PO (14:27)
[2017-05-14 17:24] VITALS: BP 92/36; PULSE 95
[2017-05-16] MEDS ORDERED: NORCO 325 MG-7.1 TAB PO (14:48)
== END 2017-05-14 15:00 | disposition home or self-care (01) ==
LOC: SDCO 10:13
DX: J90 Pleural effusion, not elsewhere classified (principal); I31.3 Pericardial effusion (noninflammatory); I50.33 Acute on chronic diastolic (congestive) heart failure; E87.1 Hypo-osmolality and hyponatremia; E87.6 Hypokalemia; E11.9 Type 2 diabetes mellitus without complications; E27.40 Unspecified adrenocortical insufficiency; D64.9 Anemia, unspecified; C78.00 Secondary malignant neoplasm of unspecified lung; Z90.49 Acquired absence of other specified parts of digestive tract; Z85.53 Personal history of malignant neoplasm of renal pelvis; Z83.3 Family history of diabetes mellitus
CPT/HCPCS: A7048; C1729; J1644; J2250; J2270; J2704; J3010; J7030